=== PATIENT | female | born 1985 | race Caucasian/White ===

== ENCOUNTER 2020-08-26 14:14 | Outpatient (REF) | payer MEDICAID, SELFPAY ==
[2020-08-27 22:27] LABS: Gliadin Deamidated IgA Ab 3 Units; Gliadin Deamidated IgG Ab 1 Units
[2020-08-30 14:36] LABS: Transglutaminase Ab IgG 5 U/mL
== END 2020-08-26 14:15 | disposition home or self-care (01) ==
LOC: HO.LAB 14:14
PROVIDERS: PCP Internal Medicine; Visit Provider Internal Medicine
DX: D64.9 Anemia, unspecified (principal); R10.9 Unspecified abdominal pain
CPT/HCPCS: 36415; 83516

== ENCOUNTER 2020-09-08 12:40 | Day surgery (SDC) | payer MEDICAID, SELFPAY ==
--- NOTE | 2020-09-07 13:17 | P.CONAN_ITS ---
Documented by User: Amy Ruiz 09/07/20 13:19 HPI - Anesthesia Eval Consult details Narrative: 35yo for EGD and Colonoscopy: GERD, change in bowel habits FOR[facility]LY [facility] Past Medical History Medical History Arthritis Asthma Surgical History Surgical History H/O tubal ligation Hx of appendectomy Social History Social History Smoking Status: Current every day smoker Use of substances other than those prescribed or required for medical reasons: No Advance Directives: No Advance Directives Information Provided: Yes Meds Allergies Allergy/AdvReac Type Severity Reaction Status Date / Time No Known Allergies Allergy Verified 09/07/20 12:50 [No Known Allergies*] Home Medications Medication Instructions Recorded Confirmed Type Advil 09/07/20 History multivitamin 09/07/20 09/07/20 History pantoprazole 09/07/20 09/07/20 History Exam Exam Date and Time: September 07, 2020 1317 Pertinent Lab Results Pertinent Lab Results: Laboratory Tests 07/18/20 07/18/20 08:56 08:56 WBC 6.9 Hgb 12.6 Hct 38.5 Plt Count 279 Sodium 138 Potassium 4.0 Chloride 107 BUN 11 Creatinine 0.81 Assessment and Plan Assessment Anesthesia Assessment: Chart Reviewed Documented by User: Darryl Tucker 09/08/20 13:12 [facility] Past Medical History Medical History Arthritis Asthma Surgical History Surgical History H/O tubal ligation Hx of appendectomy Social History Social History Smoking Status: Current every day smoker Use of substances other than those prescribed or required for medical reasons: No Advance Directives: No Advance Directives Information Provided: Yes Meds Allergies Allergy/AdvReac Type Severity Reaction Status Date / Time No Known Allergies Allergy Verified 09/07/20 12:50 [No Known Allergies*] Home Medications Medication Instructions Recorded Confirmed Type Advil 09/07/20 History multivitamin 09/07/20 09/07/20 History pantoprazole 09/07/20 09/07/20 History Exam Airway Mallampati Class: II TM Dist: >3cm Neck ROM: Full Loose/Missing/Broken Teeth: Yes and Upper Heart: RRR Assessment and Plan Assessment Anesthesia Assessment: Anesthesia Plan Discussed Final Anesthetic Review NPO: Yes ASA Class: I Final Preanesthetic Review: Consent Obtained/Reviewed Anesthetic Plan Anesthetic Plan: MAC:
--- NOTE | 2020-09-08 07:36 | MHC.SHP ---
Pre-Procedural Eval Section A The patient is an INPATIENT: No Changes since office visit: No Cold of Flu in the past 2 weeks, No New Medical Problems, No Changes in Medication and No Patient answered all questions The History & Physical has been completed within 30 days and I have reviewed it.: Yes Section B Chief Complaint: reflux,boeel change Allergies: Allergies Allergy/AdvReac Type Severity Reaction Status Date / Time No Known Allergies Allergy Verified 09/07/20 12:50 [No Known Allergies*] Plan Patient has been examined and remains a candidate for the planned procedure
[2020-09-08 13:00] VITALS: BMI 23.3
[2020-09-08 13:15] VITALS: BP 91/51; PULSE 66; RESP 18; TEMP 36.2; O2SAT 97
[2020-09-08] MEDS: Lactated Ringers 1,000 ML 100 ML IVCONT (13:25)
[2020-09-08 14:30] VITALS: BP 84/46; PULSE 62; RESP 16; O2SAT 100
--- NOTE | 2020-09-08 14:37 | PM.OP ---
Brief Operative Note Date of procedure: 09/08/20 Pre-op diagnosis: gerd, change in bowels Post-op diagnosis: same (normal colonoscopy) Procedure: egd/colon Surgeon: Oumar Kowalski Anesthesia: MAC Estimated blood loss (mL): 5 Pathology: other (duodenal,antral, egj, ti, sigmoid biopsies) Condition: stable Disposition: PACU
[2020-09-08 14:44] VITALS: BP 92/62; PULSE 77; RESP 16; TEMP 36.2; O2SAT 100
[2020-09-08 14:49] VITALS: BP 107/70; PULSE 78; RESP 16; O2SAT 100
--- NOTE | 2020-09-08 15:13 | HO.POSTANES ---
Post Anesthesia Evaluation Post Anesthesia Evaluation Vital Signs: Vital Signs Temp Pulse Resp BP Pulse Ox 09/08/20 14:49 97.1 F 78 16 107/70 100 09/08/20 14:44 97.1 F 77 16 92/62 100 09/08/20 14:30 62 16 84/46 L 100 09/08/20 13:15 97.1 F 66 18 91/51 L 97 Anesthesia: Monitored Mental Status: Awake Pain Control: Satisfactory Nausea/Vomiting: None Hydration: Adequate Anesthesia-Related Issues: No Anes. Related Issues
--- NOTE | 2020-09-08 17:19 | OP_ITS ---
SURGEON: Oumar Kowalski MD INDICATIONS: 1. Gastroesophageal reflux disease. 2. Change in bowel habits. PREOPERATIVE DIAGNOSIS: POSTOPERATIVE DIAGNOSIS: PROCEDURE PERFORMED: 1. Upper endoscopy with biopsy. 2. Colonoscopy to the terminal ileum with biopsy. ESTIMATED BLOOD LOSS: COMPLICATIONS: ANESTHESIA: Monitored anesthesia care. ASSISTANTS: SPECIMENS: DESCRIPTION OF PROCEDURE: History and physical performed. The risks and benefits of the procedure were explained to the patient. Informed consent was obtained. The patient was placed in the left lateral decubitus position. The Olympus video gastroscope was introduced into the esophagus, stomach, and duodenum. Examination was performed and the scope was removed. She was repositioned for colonoscopy. A digital rectal exam was performed and was found to be normal. The Olympus pediatric video colonoscope was introduced into the rectum and advanced to the cecum without difficulty. The cecum was identified by transillumination, palpation, and identification of ileocecal valve. Examination was performed and the scope was removed. She tolerated both procedures well and was taken to recovery area in stable condition. FINDINGS: UPPER ENDOSCOPY: Esophagus: The esophagus was normal. There was no esophagitis. Biopsies were obtained from the EG junction. Stomach: The stomach was normal. Biopsies were obtained from the antrum. Duodenum: The bulb and second portion were normal. COLONOSCOPY: The terminal ileum was normal. This was biopsied. The visualized colonic mucosa was normal. The quality of the prep was good. Biopsies were also obtained from the sigmoid colon and the ileum. Retroflexed examination showed internal hemorrhoids. IMPRESSION: 1. Gastroesophageal reflux disease without esophagitis. 2. Normal colonoscopy. RECOMMENDATION: Follow up biopsy results. MD ANABEL Hernnádez/BORIS / [id number]
== END 2020-09-08 15:13 | disposition home or self-care (01) ==
PROVIDERS: PCP Internal Medicine; Visit Provider Internal Medicine Gastroenterology
PROC: (CPT 45380; principal; 2020-09-08 13:50)
DX: R19.4 Change in bowel habit (principal); K64.8 Other hemorrhoids; K21.9 Gastro-esophageal reflux disease without esophagitis; J45.909 Unspecified asthma, uncomplicated; Z79.899 Other long term (current) drug therapy; Z79.1 Long term (current) use of non-steroidal anti-inflammatories (NSAID); F17.210 Nicotine dependence, cigarettes, uncomplicated
CPT/HCPCS: 45380; 43239; 88305; 88342

== ENCOUNTER 2020-12-27 11:34 | Emergency (ER) | payer MEDICAID, SELFPAY ==
--- NOTE | ~2020-12-27 | XR_ITS ---
EXAMINATION: XR SHOULDER, RIGHT CLINICAL INFORMATION: Status post left and fell. Anterior right shoulder pain. COMPARISON: None TECHNIQUE: AP external rotation, Grashey, scapular Y, and axillary views of the right shoulder. FINDINGS: The bones and soft tissues are normal. No fracture. Glenohumeral and acromioclavicular alignment is anatomic with normal joint space. No abnormal soft tissue calcifications. XR/XR shoulder RT min 2V IMPRESSION: Unremarkable right shoulder exam.
[2020-12-27 13:02] VITALS: BP 103/55; PULSE 65; RESP 18; TEMP 36.4; O2SAT 98; BMI 22.6
--- NOTE | 2020-12-27 13:05 | ED.FALL ---
HPI - Fall General Chief Complaint: Fall <ARCHIE Caicedo Last Filed: 12/27/20 13:09> Stated Complaint: SHOULDER PAIN - no known injury <ARCHIE Caicedo Last Filed: 12/27/20 13:09> Time Seen by Provider: 12/27/20 13:02 <ARCHIE Caicedo - Last Filed: 12/27/20 13:09> Source: patient <ARCHIE Ibrahim Last Filed: 12/27/20 14:59> Mode of arrival: ambulatory <ARCHIE Ibrahim - Last Filed: 12/27/20 14:59> History of Present Illness HPI Narrative: 35-year-old female with no significant past medical history presenting to the ED complaining of right shoulder pain s/p slip and fall on black ice while shoveling yesterday. Reports fell backwards/on right side, reports hitting head, denies LOC or headache. Denies taking anticoagulation. Reports decreased range of motion to shoulder secondary to pain. Denies numbness, tingling, weakness, or injury to other area <ARCHIE Ibrahim - Last Filed: 12/27/20 14:59> MD complaint: fall <ARCHIE Ibrahim Last Filed: 12/27/20 14:59> Onset (ago): day(s) <ARCHIE Ibrahim - Last Filed: 12/27/20 14:59> Related Data Home Medications: Home Medications Medication Instructions Recorded Confirmed Advil 200 mg PO DAILY PRN 09/07/20 09/13/20 multivitamin 1 tab PO DAILY 09/07/20 09/13/20 pantoprazole 40 mg PO DAILY 09/07/20 09/13/20 Previous Rx's Medication Instructions Recorded acetaminophen [Tylenol Extra 500 mg PO Q6H PRN #20 tab 12/27/20 Strength] cyclobenzaprine 5 mg PO Q8H PRN 5 Days #14 tab 12/27/20 lidocaine [Lidoderm] 1 patch TOPICAL DAILY PRN #30 ea 12/27/20 MDD remove after 12 hours naproxen 500 mg PO BID PRN 10 Days #20 tab 12/27/20 <ARCHIE Caicedo Last Filed: 12/27/20 13:09> Allergies/Adverse Reactions: Allergies Allergy/AdvReac Type Severity Reaction Status Date / Time No Known Allergies Allergy Verified 12/27/20 13:02 [No Known Allergies*] <ARCHIE Caicedo - Last Filed: 12/27/20 13:09> Review of Systems Review of Systems: Constitutional: No Fever, No Chills ENT/Mouth: No Sinus Pain, No Hoarseness, No sore throat Gastrointestinal: No Nausea, No Vomiting Genitourinary: No Urinary Incontinence/retention Musculoskeletal: +joint pain, No Myalgias, No Joint Swelling Skin: No Skin Lesions, No rash Neuro: No Weakness, No Numbness, No Paresthesias, no headache, no LOC <ARCHIE Ibrahim - Last Filed: 12/27/20 14:59> Yes all other systems are reviewed and are negative <ARCHIE Ibrahim - Last Filed: 12/27/20 14:59> ON LICENSE OF [facility] Past Medical History Attestation statement: The following information was validated with the patient. <ARCHIE Ibrahim - Last Filed: 12/27/20 14:59> Medical History: Medical History (Updated 12/27/20 @ 14:53 by ARCHIE Ibrahim) Arthritis Asthma <ARCHIE Caicedo - Last Filed: 12/27/20 13:09> Surgical History: Surgical History H/O hemorrhoidectomy H/O tubal ligation Hx of appendectomy <ARCHIE Caicedo - Last Filed: 12/27/20 13:09> Social History Social History: Social History (Updated 09/13/20 @ 13:47 by Dalila Graham RN) Alcohol intake: never Smoking Status: Current every day smoker Advance Directives: No Advance Directives Information Provided: No <ARCHIE Caicedo - Last Filed: 12/27/20 13:09> Physical Exam Vital Signs: Vital Signs: Last Vital Signs Temp 97.6 F 12/27/20 13:02 Pulse 65 12/27/20 13:02 Resp 18 12/27/20 13:02 BP 103/55 L 12/27/20 13:02 Pulse Ox 98 12/27/20 13:02 Body Mass Index 22.6 <ARCHIE Caicedo - Last Filed: 12/27/20 13:09> Vital Signs: Last Vital Signs Temp 97.6 F 12/27/20 13:02 Pulse 65 12/27/20 13:02 Resp 18 12/27/20 13:02 BP 103/55 L 12/27/20 13:02 Pulse Ox 98 12/27/20 13:02 Body Mass Index 22.6 <Regi Luu DC - Last Filed: 12/27/20 14:59> Const: General: cooperative, healthy appearing, comfortable and no acute distress <Regi Luu DC - Last Filed: 12/27/20 14:59> Orientation/consciousness: patient oriented x3 <Regi Luu DC - Last Filed: 12/27/20 14:59> Limitations: no limitations <Regi Luu DC - Last Filed: 12/27/20 14:59> HENMT: Head: Yes normal to inspection <eRgi Luu DC - Last Filed: 12/27/20 14:59> Ears: hearing grossly normal bilaterally <Regi Luu DC - Last Filed: 12/27/20 14:59> General nose exam: Normal external nose present <Regi Luu DC - Last Filed: 12/27/20 14:59> Face and sinus: Yes normal facial exam <Regi Luu DC - Last Filed: 12/27/20 14:59> Eyes: General: appearance normal, both eyes and all related structures <Reig Luu DC - Last Filed: 12/27/20 14:59> Pupils: Equal, round and reactive pupils present <Regi Luu DC - Last Filed: 12/27/20 14:59> EOM: EOMs intact bilaterally <Regi Luu DC - Last Filed: 12/27/20 14:59> Neck: Other: No midline cervical spinous tenderness. + right-sided trapezius muscle tenderness to palpation <Regi Luu DC - Last Filed: 12/27/20 14:59> Neck: Yes normal visual inspection and Yes no meningeal signs <ARCHIE Ibrahim - Last Filed: 12/27/20 14:59> Resp: Effort & Inspection: normal respiratory effort <ARCHIE Ibrahim - Last Filed: 12/27/20 14:59> Cardio: Rate: regular rate <ARCHIE Ibraihm - Last Filed: 12/27/20 14:59> GI: Inspection: Yes normal to inspection <ARCHIE Ibrahim - Last Filed: 12/27/20 14:59> Skin: Rashes: no rashes <ARCHIE Ibrahim - Last Filed: 12/27/20 14:59> Wounds: no wounds <ARCHIE Ibrahim - Last Filed: 12/27/20 14:59> Neuro: General: patient oriented x3, gait normal, tone normal and no meningeal signs <ARCHIE Ibrahim - Last Filed: 12/27/20 14:59> Cranial nerves: Yes Equal, round and reactive pupils present <ARCHIE Ibrahim - Last Filed: 12/27/20 14:59> Gait exam (Neuro): Normal gait present <ARCHIE Ibrahim - Last Filed: 12/27/20 14:59> Extrem: Other: Right shoulder normal to inspection, no appreciable deformity. Tender to palpation with decreased abduction and external rotation. Neurovascularly intact. <ARCHIE Ibrahim - Last Filed: 12/27/20 14:59> Course Course Course Narrative: RME performed at this time - 35yoF presenting after she slipped and fell yesterday on ice/snow injurying her r shoulder. Hit her head but no LOC. - Xray of R shoulder ordered at this time. Pt back to waiting room. <ARCHIE Caicedo - Last Filed: 12/27/20 13:09> -shoulder x-ray unremarkable <ARCHIE Ibrahim - Last Filed: 12/27/20 14:59> MDM - Fall MDM Narrative Medical decision making narrative: On exam VSS, NAD, physical exam as above. X-rays unremarkable. Likely ligamental/tendon injury. Discussed with patient symptomatic remedies and follow up with PCP, may need MRI in the future for further eval <ARCHIE Ibrahim - Last Filed: 12/27/20 14:59> Medical Records Attestation: I reviewed the patient's medical records. <ARCHIE Ibrahim - Last Filed: 12/27/20 14:59> Discharge Plan Discharge Clinical Impression: Acute shoulder pain Qualifiers: Laterality: right Qualified Code(s): M25.511 - Pain in right shoulder <ARCHIE Caicedo - Last Filed: 12/27/20 13:09> Patient Disposition: Home, Self-Care <ARCHIE Caicedo - Last Filed: 12/27/20 13:09> Instructions: Musculoskeletal Pain (ED) <ARCHIE Caicedo - Last Filed: 12/27/20 13:09> Additional Instructions: Your x-ray was unremarkable. Your pain is likely musculoskeletal Flexeril is a muscle relaxer, take at night as it makes you drowsy, do not drive, drink alcohol, or operate machinery while taking it Naproxen as an anti-inflammatory / pain medication, take with food Lidoderm patches are numbing patches, apply to painful area In addition take Tylenol at home If symptoms persist or worsen, pain becomes unbearable, you developed urinary retention or incontinence, or weakness return to the ED <ARCHIE Caicedo - Last Filed: 12/27/20 13:09> Prescriptions: New acetaminophen [Tylenol Extra Strength] 500 mg tablet 500 mg PO Q6H PRN (Reason: pain or fever) Qty: 20 RF: 0 lidocaine [Lidoderm] 5 % adhesive patch,medicated 1 patch topical DAILY MDD remove after 12 hours PRN (Reason: pain) Qty: 30 RF: 0 naproxen 500 mg tablet 500 mg PO BID PRN (Reason: pain) 10 Days Qty: 20 RF: 0 cyclobenzaprine 5 mg tablet 5 mg PO Q8H PRN (Reason: pain (scale score 7-10)) 5 Days Qty: 14 RF: 0 No Action Advil 200 mg PO DAILY PRN (Reason: Pain) RF: 0 Hold Instructions: 7 days multivitamin 1 tab PO DAILY RF: 0 pantoprazole 40 mg PO DAILY RF: 0 <ARCHIE Caicedo - Last Filed: 12/27/20 13:09> Referrals: Dheeraj Morton MD [Primary Care Provider] - 3 days Gene Poon MD [Physician] - 1 week (as needed) <ARCHIE Caicedo Last Filed: 12/27/20 13:09> Stand Alone Forms: Work/School Release <ARCHIE Caicedo Last Filed: 12/27/20 13:09>
== END 2020-12-27 15:14 | disposition home or self-care (01) ==
PROVIDERS: Emergency Provider Emergency Medicine; PCP Internal Medicine
DX: G89.11 Acute pain due to trauma (principal); M25.511 Pain in right shoulder
CPT/HCPCS: 73030; 99283

== ENCOUNTER 2021-05-26 21:11 | Emergency (ER) | payer MEDICAID, SELFPAY ==
--- NOTE | ~2021-05-26 | XR_ITS ---
EXAMINATION: XR CHEST CLINICAL INFORMATION: Cough, fever COMPARISON: 06/10/2018 TECHNIQUE: Frontal view of the chest was obtained. FINDINGS: No significant abnormality is noted involving the heart, lungs, mediastinum, bony thorax or soft tissues. XR/XR chest 1V IMPRESSION: Unremarkable examination.
[2021-05-26 21:28] VITALS: BP 112/65; PULSE 113; RESP 22; TEMP 38.2; BMI 26.6
[2021-05-26 22:00] VITALS: BP 106/67; PULSE 101; RESP 16; TEMP 38.3; O2SAT 100
[2021-05-26 22:17] LABS: COVID-19 Test Negative (Negative)
--- NOTE | 2021-05-26 22:39 | ED.URI ---
HPI - URI/Sore Throat General Chief Complaint: Upper Respiratory Symptoms Stated Complaint: multiple complaints Time Seen by Provider: 05/26/21 22:05 Source: patient Mode of arrival: ambulatory History of Present Illness HPI Narrative: 36-year-old female with past medical history of asthma, arthritis, presenting to the ED complaining of headache, subjective fever, sore throat, rhinorrhea, left ear pain, body aches / myalgias, dry cough, SOB, and chest wall pain x today. Denies recent travel, LE edema, history of blood clots, abdominal pain, nausea /vomiting, sick contacts MD elicited complaint: fever, cough, sore throat, rhinorrhea and nasal congestion Related Data Home Medications Medication Instructions Recorded Confirmed Advil 200 mg PO DAILY PRN 09/07/20 09/13/20 multivitamin 1 tab PO DAILY 09/07/20 09/13/20 pantoprazole 40 mg PO DAILY 09/07/20 09/13/20 Previous Rx's Medication Instructions Recorded acetaminophen [Tylenol Extra 500 mg PO Q6H PRN #20 tab 12/27/20 Strength] cyclobenzaprine 5 mg PO Q8H PRN 5 Days #14 tab 12/27/20 lidocaine [Lidoderm] 1 patch TOPICAL DAILY PRN #30 ea 12/27/20 MDD remove after 12 hours naproxen 500 mg PO BID PRN 10 Days #20 tab 12/27/20 acetaminophen [Tylenol Extra 500 mg PO Q6H PRN #20 tab 05/27/21 Strength] albuterol sulfate 2 puff INHALATION Q4-6H PRN #6.7 g 05/27/21 benzonatate [Tessalon Perles] 100 mg PO TID PRN #14 cap 05/27/21 fluticasone propionate [Flonase 2 spray INTRANASAL DAILY #16 g 05/27/21 Allergy Relief] Allergies Allergy/AdvReac Type Severity Reaction Status Date / Time No Known Allergies Allergy Verified 05/26/21 21:28 [No Known Allergies*] Review of Systems Review of Systems: Constitutional: + Fever, No Chills, No Fatigue, No Malaise ENT/Mouth: +Ear Pain, + Nasal Congestion, No Sinus Pain, No Hoarseness, + sore throat, + Rhinorrhea, No Swallowing Difficulty Eyes: No Swelling, No Redness, No Foreign Body, No Discharge Cardiovascular: + Chest Pain, + SOB, No Edema Respiratory: + Cough, No Sputum, No Wheezing Gastrointestinal: No Nausea, No Vomiting, No Diarrhea, No Abdominal pain Genitourinary: No Dysuria, No Hematuria, No Hesitancy Musculoskeletal: No joint pain, No Myalgias, No Joint Swelling Skin: No Skin Lesions, No rash Neuro: No Weakness, No Numbness, + Headache Yes all other systems are reviewed and are negative [facility] Past Medical History Attestation statement: The following information was validated with the patient. Medical History (Updated 05/27/21 @ 00:16 by ARCHIE Ibrahim) Arthritis Asthma Surgical History H/O hemorrhoidectomy H/O tubal ligation Hx of appendectomy Social History Social History (Updated 09/13/20 @ 13:47 by Dalila Graham RN) Alcohol intake: never Advance Directives: No Advance Directives Information Provided: No Physical Exam Vital Signs: Vital Signs: Last Vital Signs Temp 99.5 F 05/26/21 23:23 Pulse 97 05/26/21 23:23 Resp 16 05/26/21 23:23 BP 125/70 05/26/21 23:23 Pulse Ox 99 05/26/21 23:23 Body Mass Index 26.6 Const: General: cooperative, healthy appearing and no acute distress Orientation/consciousness: patient oriented x3 Limitations: no limitations HENMT: Head: Yes normal to inspection Ears: hearing grossly normal bilaterally, normal mastoids bilaterally and TM abnormal wth effusion (left) and erythematous on the left General nose exam: Normal external nose present Face and sinus: Yes normal facial exam Mouth: Normal oral and palatal mucosa present Throat: Yes posterior oropharynx normal, Yes tonsils normal, Yes uvula midline, No peritonsillar mass and No uvular edema Eyes: General: appearance normal, both eyes and all related structures EOM: EOMs intact bilaterally Neck: Neck: Yes normal visual inspection, Yes no meningeal signs and Yes supple Resp: Effort & Inspection: normal respiratory effort Auscultation: clear to auscultation bilaterally, no rales, no rhonchi and no wheezes Cardio: Rate: regular rate Heart sounds: S1 normal heart sound present and S2 normal heart sound present GI: Inspection: Yes normal to inspection Palpation (GI): Soft to palpation, nontender, no guarding and not rigid Skin: Rashes: no rashes Wounds: no wounds Neuro: General: patient oriented x3 and no meningeal signs Gait exam (Neuro): Normal gait present Extrem: General: Yes normal to inspection, Yes no pedal edema and Yes no calf tenderness Course Course Course Narrative: XR chest 1V IMPRESSION: Unremarkable examination. - labs unremarkable, no leukocytosis, troponin negative, COVID-19 negative, rapid strep negative -0013-- patient's vital signs improved with antipyretics. Results discussed including worrisome signs and symptoms and strict return precautions. Patient is to follow-up with PCP MDM - URI/Sore Throat MDM Narrative Medical decision making narrative: 36-year-old female with past medical history of asthma, arthritis, presenting to the ED complaining of headache, subjective fever, sore throat, rhinorrhea, left ear pain, body aches / myalgias, dry cough, SOB, and chest wall pain x today. On exam febrile, tachycardic and tachypneic likely from fever, nontoxic, lungs CTA, +L otitis media, no pedal edema or calf ttp. Exam consistent with otitis media. Concern for viral syndrome/ COVID-19 vs PNA. Low concern for PE/ACS, no evidence of strep pharyngitis Plan: EKG, labs, CXR, COVID-19 testing, rapid strep, IVF Medical Records Attestation: I reviewed the patient's medical records. Lab Data Attestation: I reviewed the patient's lab results. Result diagrams: 05/26/21 22:42 05/26/21 22:42 Labs: Lab Results 05/26/21 05/26/21 05/26/21 Range/Units 21:35 22:42 22:42 WBC 10.2 (4.8-10.8) X10*3/uL RBC 4.04 L (4.20-5.50) X10*6/uL Hgb 12.2 (12.0-16.0) g/dl Hct 36.7 L (37-47) % MCV 90.8 (80-98) fL MCH 30.2 (27.0-33.0) pg MCHC 33.2 (31.0-35.0) g/dl RDW 12.9 (11.0-16.0) % Plt Count 247 (160-400) X10*3/uL MPV 9.2 L (9.4-12.3) fL Immature Gran % (Auto) 0.2 (0.0-0.4) % Neut % (Auto) 84.9 H (45-73) % Lymph % (Auto) 7.8 L (20-40) % [place] % (Auto) 5.7 (2-11) % Eos % (Auto) 1.1 (0-4) % Baso % (Auto) 0.3 (0-2) % Lymph # (Auto) 0.8 L (1.2-4.9) X10*3/uL [place] # (Auto) 0.6 (0.1-1.2) X10*3/uL Eos # (Auto) 0.1 (0.0-0.4) X10*3/uL Baso # (Auto) 0.0 (0.0-0.2) X10*3/uL Abs Immat Gran (auto) 0.02 (0.00-0.03) X10*3/uL Absolute Neuts (auto) 8.7 H (2.0-8.3) X10*3/uL Absolute Nucleated RBC 0.000 (0.0-0.012) X10*3/uL Nucleated RBC % (auto) 0.0 (0.0-0.2) /100WBC Sodium 135 (135-145) mmol/L Potassium 3.9 (3.3-5.1) mmol/L Chloride 104 (96-108) mmol/L Carbon Dioxide 23 (22-29) mmol/L Anion Gap 12 (12-20) BUN 11 (9-16) mg/dL Creatinine 0.96 (0.5-1.4) mg/dL Estim Creat Clear Calc 80.8 Estimated GFR > 60 Random Glucose 101 (60-115) mg/dL Calcium 9.2 (8.4-10.2) mg/dL Troponin I High Sens (<3.5-17.0) ng/L COVID-19 (KRISTIE) Negative (Negative) COVID-19 Clin Com See Note S. pyogenes GrpA KYLE (Negative) 05/26/21 05/26/21 Range/Units 22:42 22:56 WBC (4.8-10.8) X10*3/uL RBC (4.20-5.50) X10*6/uL Hgb (12.0-16.0) g/dl Hct (37-47) % MCV (80-98) fL MCH (27.0-33.0) pg MCHC (31.0-35.0) g/dl RDW (11.0-16.0) % Plt Count (160-400) X10*3/uL MPV (9.4-12.3) fL Immature Gran % (Auto) (0.0-0.4) % Neut % (Auto) (45-73) % Lymph % (Auto) (20-40) % [place] % (Auto) (2-11) % Eos % (Auto) (0-4) % Baso % (Auto) (0-2) % Lymph # (Auto) (1.2-4.9) X10*3/uL [place] # (Auto) (0.1-1.2) X10*3/uL Eos # (Auto) (0.0-0.4) X10*3/uL Baso # (Auto) (0.0-0.2) X10*3/uL Abs Immat Gran (auto) (0.00-0.03) X10*3/uL Absolute Neuts (auto) (2.0-8.3) X10*3/uL Absolute Nucleated RBC (0.0-0.012) X10*3/uL Nucleated RBC % (auto) (0.0-0.2) /100WBC Sodium (135-145) mmol/L Potassium (3.3-5.1) mmol/L Chloride (96-108) mmol/L Carbon Dioxide (22-29) mmol/L Anion Gap (12-20) BUN (9-16) mg/dL Creatinine (0.5-1.4) mg/dL Estim Creat Clear Calc Estimated GFR Random Glucose (60-115) mg/dL Calcium (8.4-10.2) mg/dL Troponin I High Sens < 3.5 (<3.5-17.0) ng/L COVID-19 (KRISTIE) (Negative) COVID-19 Clin Com S. pyogenes GrpA YKLE Negative (Negative) Discharge Plan Discharge Clinical Impression: Viral infection Patient Disposition: Home, Self-Care Instructions: Viral Syndrome (ED) Additional Instructions: your blood work was reassuring, he tested negative for COVID-19 and strep throat Your x-ray was also unremarkable It is important for you to stay hydrated at home, take Tylenol Motrin In addition test on 1st are for cough, Flonase is a nasal decongestion take as needed Albuterol inhaler will help with shortness of breath/wheezing If your symptoms persist or worsen, become unbearable, or chest pain or shortness of breath becomes more constant, or fevers unresolved with Tylenol/ Motrin at home return to the ED please follow-up with her doctor Prescriptions: New albuterol sulfate 90 mcg/actuation HFA aerosol inhaler 2 puff inhalation Q4-6H PRN (Reason: shortness of breath or wheezing) Qty: 6.7 RF: 0 acetaminophen [Tylenol Extra Strength] 500 mg tablet 500 mg PO Q6H PRN (Reason: pain or fever) Qty: 20 RF: 0 benzonatate [Tessalon Perles] 100 mg capsule 100 mg PO TID PRN (Reason: cough) Qty: 14 RF: 0 fluticasone propionate [Flonase Allergy Relief] 50 mcg/actuation spray,suspension 2 spray intranasal DAILY Qty: 16 RF: 0 No Action Advil 200 mg PO DAILY PRN (Reason: Pain) RF: 0 Hold Instructions: 7 days multivitamin 1 tab PO DAILY RF: 0 pantoprazole 40 mg PO DAILY RF: 0 acetaminophen [Tylenol Extra Strength] 500 mg tablet 500 mg PO Q6H PRN (Reason: pain or fever) Qty: 20 RF: 0 lidocaine [Lidoderm] 5 % adhesive patch,medicated 1 patch topical DAILY MDD remove after 12 hours PRN (Reason: pain) Qty: 30 RF: 0 naproxen 500 mg tablet 500 mg PO BID PRN (Reason: pain) 10 Days Qty: 20 RF: 0 cyclobenzaprine 5 mg tablet 5 mg PO Q8H PRN (Reason: pain (scale score 7-10)) 5 Days Qty: 14 RF: 0 Referrals: Dheeraj Morton MD [Primary Care Provider] - 2 days
[2021-05-26] MEDS: Ibuprofen 600 MG TABLET PO (22:43)
[2021-05-26] MEDS: 0.9 % Sodium Chloride 1,000 ML 999 ML IVCONT (22:43)
--- NOTE | 2021-05-26 22:45 | ECG_ITS ---
Test Reason : SOB Blood Pressure : / mmHG Vent. Rate : 082 BPM Atrial Rate : 082 BPM P-R Int : 158 ms QRS Dur : 084 ms QT Int : 368 ms P-R-T Axes : 033 049 019 degrees QTc Int : 429 ms Normal sinus rhythm Normal ECG No previous ECGs available Referred By: Regi Luu Electronically Signed By:AUBREE MOLINA
[2021-05-26 22:49] LABS: MANUAL DIFF FLAG NO
[2021-05-26 22:51] LABS: Basophils Percent Auto 0.3 % (0-2); Eosinophils Absolute Auto 0.1 X10*3/uL (0.0-0.4); Eosinophils Percent Auto 1.1 % (0-4); Hematocrit 36.7 % (37-47); Hemoglobin 12.2 g/dl (12.0-16.0); Imm Gran Abs Auto 0.02 X10*3/uL (0.00-0.03); Imm Gran Pct Auto 0.2 % (0.0-0.4); Lymphocytes Absolute Auto 0.8 X10*3/uL (1.2-4.9); Lymphocytes Percent Auto 7.8 % (20-40); Mean Corpuscular HGB Conc 33.2 g/dl (31.0-35.0); Mean Corpuscular Hemoglobin 30.2 pg (27.0-33.0); Mean Corpuscular Volume 90.8 fL (80-98); Mean Platelet Volume 9.2 fL (9.4-12.3); Monocytes Absolute Auto 0.6 X10*3/uL (0.1-1.2); Monocytes Percent Auto 5.7 % (2-11); Neutrophils Absolute Auto 8.7 X10*3/uL (2.0-8.3); Neutrophils Percent Auto 84.9 % (45-73); Platelet Count 247 X10*3/uL (160-400); Red Blood Count 4.04 X10*6/uL (4.20-5.50); Red Cell Distribution Width 12.9 % (11.0-16.0); White Blood Count 10.2 X10*3/uL (4.8-10.8)
[2021-05-26 23:16] LABS: Anion Gap 12 (12-20); Blood Urea Nitrogen 11 mg/dL (9-16); Calcium 9.2 mg/dL (8.4-10.2); Carbon Dioxide 23 mmol/L (22-29); Chloride 104 mmol/L (96-108); Creatinine Clr Calc Pharmacy 80.8; Estimated Glomerular Filt Rate > 60; Glucose Random 101 mg/dL (60-115); Potassium 3.9 mmol/L (3.3-5.1); Sodium 135 mmol/L (135-145)
[2021-05-26 23:21] LABS: Strep A Nucleic Acid Negative (Negative)
[2021-05-26 23:23] VITALS: BP 125/70; PULSE 97; RESP 16; TEMP 37.5; O2SAT 99
[2021-05-26 23:25] LABS: Troponin-I High Sensitivity < 3.5 ng/L (<3.5-17.0)
== END 2021-05-27 00:33 | disposition home or self-care (01) ==
PROVIDERS: Physician Assistant; Emergency Provider Emergency Medicine; PCP Internal Medicine
DX: B34.9 Viral infection, unspecified (principal); J45.909 Unspecified asthma, uncomplicated; Z20.822 Contact with and (suspected) exposure to COVID-19
CPT/HCPCS: 36415; 71045; 80048; 84484; 85025; 87635; 87651; 93005; 96360; 99285

== ENCOUNTER 2021-08-05 11:56 | Outpatient (REF) | payer MEDICAID, SELFPAY ==
[2021-08-05 13:45] LABS: MANUAL DIFF FLAG NO
[2021-08-05 13:54] LABS: Basophils Percent Auto 0.4 % (0-2); Eosinophils Percent Auto 0.5 % (0-4); Hematocrit 36.6 % (37-47); Hemoglobin 12.3 g/dl (12.0-16.0); Imm Gran Abs Auto 0.02 X10*3/uL (0.00-0.03); Imm Gran Pct Auto 0.3 % (0.0-0.4); Lymphocytes Absolute Auto 1.8 X10*3/uL (1.2-4.9); Lymphocytes Percent Auto 23.6 % (20-40); Mean Corpuscular HGB Conc 33.6 g/dl (31.0-35.0); Mean Corpuscular Hemoglobin 31.1 pg (27.0-33.0); Mean Corpuscular Volume 92.7 fL (80-98); Mean Platelet Volume 10.1 fL (9.4-12.3); Monocytes Absolute Auto 0.4 X10*3/uL (0.1-1.2); Monocytes Percent Auto 5.1 % (2-11); Neutrophils Absolute Auto 5.2 X10*3/uL (2.0-8.3); Neutrophils Percent Auto 70.1 % (45-73); Platelet Count 246 X10*3/uL (160-400); Red Blood Count 3.95 X10*6/uL (4.20-5.50); Red Cell Distribution Width 13.2 % (11.0-16.0); White Blood Count 7.4 X10*3/uL (4.8-10.8)
[2021-08-05 15:00] LABS: Vitamin B12 185 pg/mL (200-900)
[2021-08-05 15:18] LABS: Anion Gap 12 (12-20); Blood Urea Nitrogen 11 mg/dL (9-16); C Reactive Protein 0.06 mg/dL (< or = 0.50); Calcium 9.4 mg/dL (8.4-10.2); Carbon Dioxide 25 mmol/L (22-29); Chloride 104 mmol/L (96-108); Estimated Glomerular Filt Rate > 60; Glucose Random 107 mg/dL (60-115); Sodium 137 mmol/L (135-145)
[2021-08-05 15:42] LABS: Thyroid Stimulating Hormone 0.68 uIU/mL (0.32-4.0)
== END 2021-08-05 11:57 | disposition home or self-care (01) ==
LOC: HO.10HDL 11:56
PROVIDERS: Visit Provider Internal Medicine
DX: R63.5 Abnormal weight gain (principal); K21.9 Gastro-esophageal reflux disease without esophagitis; E55.9 Vitamin D deficiency, unspecified; M79.642 Pain in left hand; M79.641 Pain in right hand
CPT/HCPCS: 36415; 80048; 82306; 82607; 84439; 84443; 85025; 86140

== ENCOUNTER 2021-08-18 12:34 | Outpatient (REF) | payer MEDICAID, SELFPAY ==
[2021-08-18 14:41] LABS: COVID-19 Test Negative (Negative)
== END 2021-08-18 12:35 | disposition home or self-care (01) ==
LOC: HO.LAB 12:34
PROVIDERS: PCP Internal Medicine; Visit Provider Internal Medicine
DX: Z20.822 Contact with and (suspected) exposure to COVID-19 (principal)
CPT/HCPCS: 36415; 87635; C9803

== ENCOUNTER 2021-09-29 07:50 | Outpatient (REF) | payer MEDICAID, SELFPAY ==
--- NOTE | 2021-09-29 07:54 | EMG_ITS ---
Bilateral median and ulnar motor and sensory studies were performed. Bilateral radial sensory studies were performed and paraspinal muscles were tested with a needle. IMPRESSION: Mild bilateral ulnar neuropathy across cubital tunnel. Median studies were within normal range. MD FIDELIA Bonilla/BORIS / [id number]
== END 2021-09-29 07:51 | disposition home or self-care (01) ==
LOC: HO.NEURO 07:50
PROVIDERS: Visit Provider Internal Medicine
DX: M79.643 Pain in unspecified hand (principal)
CPT/HCPCS: 95886; 95911

== ENCOUNTER 2021-10-20 10:57 | Outpatient (REF) | payer MEDICAID, SELFPAY ==
[2021-10-22 11:18] LABS: BV Int Neg Control Negative (Negative); BV Int Pos Control Positive (Positive)
[2021-10-22 15:00] LABS: CT PCR NOT DETECTED (Not Detect.); NG PCR NOT DETECTED (Not Detect.)
[2021-10-27 04:52] LABS: HPV mRNA E6/E7 rflx Not Detected (Not Detected)
== END 2021-10-20 10:58 | disposition home or self-care (01) ==
LOC: HO.LAB 10:57
PROVIDERS: PCP Internal Medicine; Visit Provider Advanced Practice Midwife
DX: Z01.419 Encounter for gynecological examination (general) (routine) without abnormal findings (principal); Z11.51 Encounter for screening for human papillomavirus (HPV); Z20.2 Contact with and (suspected) exposure to infections with a predominantly sexual mode of transmission; Z87.42 Personal history of other diseases of the female genital tract; Z98.890 Other specified postprocedural states
CPT/HCPCS: 87480; 87491; 87510; 87591; 87624; 87660; 88142

== ENCOUNTER 2021-11-23 13:33 | Outpatient (REF) | payer MEDICAID, SELFPAY ==
[2021-11-23 14:41] LABS: Influenza A PCR NEGATIVE (Negative); Influenza B PCR NEGATIVE (Negative); Resp Syncy Virus RNA Qual PCR NEGATIVE (Negative); SARS COV2 PCR INHOUSE POSITIVE (Negative)
== END 2021-11-23 13:34 | disposition home or self-care (01) ==
LOC: HO.LNP 13:33
PROVIDERS: Visit Provider Internal Medicine
DX: J02.9 Acute pharyngitis, unspecified (principal); U07.1 COVID-19; Z20.822 Contact with and (suspected) exposure to COVID-19
CPT/HCPCS: 0241U

== ENCOUNTER → 2022-11-28 12:40 | Outpatient (BNVA) | payer MEDICAID, SELFPAY | PROVIDERS: PCP Internal Medicine; Visit Provider Advanced Practice Midwife | DX: Z13.89 Encounter for screening for other disorder (principal) ==

== ENCOUNTER 2023-10-23 14:15 | Outpatient (REF) | payer MEDICAID, SELFPAY ==
[2023-10-23 14:35] LABS: MANUAL DIFF FLAG NO
[2023-10-23 14:46] LABS: Basophils Absolute Auto 0.1 X10*3/uL (0.0-0.2); Basophils Percent Auto 0.6 % (0-2); Eosinophils Absolute Auto 0.1 X10*3/uL (0.0-0.4); Eosinophils Percent Auto 0.6 % (0-4); Hemoglobin 13.4 g/dl (12.0-16.0); Imm Gran Abs Auto 0.01 X10*3/uL (0.00-0.03); Imm Gran Pct Auto 0.1 % (0.0-0.4); Lymphocytes Absolute Auto 2.2 X10*3/uL (1.2-4.9); Lymphocytes Percent Auto 27.9 % (20-40); Mean Corpuscular HGB Conc 33.5 g/dl (31.0-35.0); Mean Corpuscular Hemoglobin 31.2 pg (27.0-33.0); Mean Corpuscular Volume 93.2 fL (80.0-98.0); Mean Platelet Volume 8.8 fL (9.4-12.3); Monocytes Absolute Auto 0.4 X10*3/uL (0.1-1.2); Monocytes Percent Auto 4.7 % (2-11); Neutrophils Absolute Auto 5.2 x10*3/uL (2.0-8.3); Neutrophils Percent Auto 66.1 % (45-73); Platelet Count 288 X10*3/uL (160-400); Red Blood Count 4.29 X10*6/uL (4.20-5.50); Red Cell Distribution Width 12.7 % (11.0-16.0); White Blood Count 7.9 X10*3/uL (4.8-10.8)
[2023-10-23 15:21] LABS: Anion Gap 11 (12-20); Blood Urea Nitrogen 8 mg/dL (9-16); Calcium 9.3 mg/dL (8.4-10.2); Carbon Dioxide 24 mmol/L (22-29); Chloride 106 mmol/L (96-108); Estimated Glomerular Filt Rate > 60; Glucose Random 87 mg/dL (60-115); Iron 136 mcg/dL (30-160); Percent Iron Saturation 43 % (15-50); Sodium 137 mmol/L (135-145); Total Iron Binding Capacity 314 mcg/dL (228-428); Unsaturated Iron Binding 178 ug/dL
[2023-10-23 15:38] LABS: Vitamin B12 201 pg/mL (200-900); Vitamin D 25-OH Total 14.5 ng/mL (>30)
[2023-10-25 16:19] LABS: TS Negative Control Passed; TS Panel A 0; TS Panel B 0; TS Positive Control Passed; TSpotTB Negative (Negative)
== END 2023-10-23 14:16 | disposition home or self-care (01) ==
LOC: HO.LAB 14:15
PROVIDERS: PCP Internal Medicine; Visit Provider Internal Medicine
DX: Z02.0 Encounter for examination for admission to educational institution (principal); Z11.1 Encounter for screening for respiratory tuberculosis; D64.9 Anemia, unspecified; E55.9 Vitamin D deficiency, unspecified; E53.8 Deficiency of other specified B group vitamins
CPT/HCPCS: 36415; 80048; 82306; 82607; 83540; 85025; 86481

== ENCOUNTER 2024-04-30 10:01 | Outpatient (REF) | payer MEDICAID, SELFPAY ==
[2024-04-30 10:38] LABS: MANUAL DIFF FLAG NO
[2024-04-30 10:56] LABS: Basophils Percent Auto 0.4 % (0-2); Eosinophils Absolute Auto 0.1 X10*3/uL (0.0-0.4); Eosinophils Percent Auto 0.8 % (0-4); Hematocrit 40.2 % (37.0-47.0); Hemoglobin 13.8 g/dl (12.0-16.0); Imm Gran Abs Auto 0.03 X10*3/uL (0.00-0.03); Imm Gran Pct Auto 0.3 % (0.0-0.4); Lymphocytes Absolute Auto 2.3 X10*3/uL (1.2-4.9); Lymphocytes Percent Auto 25.2 % (20-40); Mean Corpuscular HGB Conc 34.3 g/dl (31.0-35.0); Mean Corpuscular Hemoglobin 32.3 pg (27.0-33.0); Mean Corpuscular Volume 94.1 fL (80.0-98.0); Mean Platelet Volume 9.1 fL (9.4-12.3); Monocytes Absolute Auto 0.5 X10*3/uL (0.1-1.2); Monocytes Percent Auto 5.4 % (2-11); Neutrophils Absolute Auto 6.1 x10*3/uL (2.0-8.3); Neutrophils Percent Auto 67.9 % (45-73); Platelet Count 311 X10*3/uL (160-400); Red Blood Count 4.27 X10*6/uL (4.20-5.50)
[2024-04-30 11:30] LABS: Alanine Aminotransferase 6 U/L (0-31); Albumin Level 4.4 g/dL (3.5-5.0); Alkaline Phosphatase 64 U/L (39-117); Anion Gap 12 (12-20); Aspartate Amino Transferase 10 U/L (5-31); Bilirubin Total 0.5 mg/dL (0.0-1.0); Blood Urea Nitrogen 10 mg/dL (9-16); C Reactive Protein < 0.10 mg/dL (< or = 0.50); Calcium 9.5 mg/dL (8.4-10.2); Carbon Dioxide 27 mmol/L (22-29); Chloride 104 mmol/L (96-108); Cholesterol 184 mg/dL (<200); Estimated Glomerular Filt Rate > 60; Glucose Fasting 86 mg/dL (60-99); HDL Cholesterol 42 mg/dL (>40); LDL Cholesterol Calculated 120 mg/dL (<100); Potassium 3.8 mmol/L (3.3-5.1); Sodium 139 mmol/L (135-145); Total Protein 7.4 g/dL (6.5-8.0); Triglycerides 110 mg/dL (<150)
[2024-04-30 11:46] LABS: Thyroid Stimulating Hormone 0.63 uIU/mL (0.32-4.0)
[2024-04-30 11:51] LABS: Vitamin B12 185 pg/mL (200-900)
== END 2024-04-30 10:02 | disposition home or self-care (01) ==
LOC: HO.10HDL 10:01
PROVIDERS: Visit Provider Internal Medicine
DX: R10.9 Unspecified abdominal pain (principal); R55 Syncope and collapse; Z84.89 Family history of other specified conditions
CPT/HCPCS: 36415; 80053; 80061; 82550; 82607; 84443; 85025; 86140

== ENCOUNTER → 2024-07-15 14:08 | Outpatient (RCR) | payer MEDICAID, SELFPAY ==
[2020-09-13 13:35] VITALS: BP 121/68; PULSE 84; RESP 18; TEMP 37.1; O2SAT 99
[2020-09-13 13:36] VITALS: BMI 23.1
[2020-09-13 14:23] LABS: MANUAL DIFF FLAG NO
[2020-09-13 14:32] LABS: Basophils Absolute Auto 0.1 X10*3/uL (0.0-0.2); Basophils Percent Auto 0.6 % (0-2); Eosinophils Absolute Auto 0.1 X10*3/uL (0.0-0.4); Eosinophils Percent Auto 1.1 % (0-4); Hematocrit 36.9 % (37-47); Hemoglobin 12.1 g/dl (12.0-16.0); Imm Gran Abs Auto 0.04 X10*3/uL (0.00-0.03); Imm Gran Pct Auto 0.5 % (0.0-0.4); Lymphocytes Absolute Auto 2.6 X10*3/uL (1.2-4.9); Lymphocytes Percent Auto 30.4 % (20-40); Mean Corpuscular HGB Conc 32.8 g/dl (31.0-35.0); Mean Corpuscular Hemoglobin 30.3 pg (27.0-33.0); Mean Corpuscular Volume 92.5 fL (80-98); Mean Platelet Volume 9.4 fL (9.4-12.3); Monocytes Absolute Auto 0.4 X10*3/uL (0.1-1.2); Monocytes Percent Auto 4.4 % (2-11); Neutrophils Absolute Auto 5.3 X10*3/uL (2.0-8.3); Platelet Count 305 X10*3/uL (160-400); Red Blood Count 3.99 X10*6/uL (4.20-5.50); Red Cell Distribution Width 14.4 % (11.0-16.0); White Blood Count 8.4 X10*3/uL (4.8-10.8)
--- NOTE | 2020-09-13 15:14 | MHC.HEMONC ---
pt seen by Dr Michaud. Labs reviewed. Anemia is better.
[2020-09-13 15:18] LABS: Alanine Aminotransferase < 6 U/L (0-31); Albumin Level 4.4 g/dL (3.5-5.0); Alkaline Phosphatase 59 U/L (39-117); Anion Gap 12 (12-20); Aspartate Amino Transferase 9 U/L (5-31); Bilirubin Total 0.4 mg/dL (0.0-1.0); Blood Urea Nitrogen 11 mg/dL (9-16); Calcium 9.1 mg/dL (8.4-10.2); Carbon Dioxide 25 mmol/L (22-29); Chloride 104 mmol/L (96-108); Creatinine Clr Calc Pharmacy 88.3; Estimated Glomerular Filt Rate > 60; Glucose Random 82 mg/dL (60-115); Sodium 137 mmol/L (135-145); Total Protein 7.2 g/dL (6.5-8.0)
[2020-09-13 15:22] LABS: Ferritin 6 ng/mL (10-122)
--- NOTE | 2020-09-13 15:25 | P.PNHO_ITS ---
Medical Summary - Medical Summary Chief complaint: Follow-up for: Iron deficiency anemia. Medical Summary: DIAGNOSIS: Microcytic Hypochromic Anemia. CURRENT THERAPY: Status post-IV Ferrlecit, between June 10 and June. Interval History Interval history: This is a pleasant 35 year-old lady, who is here for a follow-up visit. She feels quite well, although occasionally she feels a bit tired. She tells me that she used to have a heavy period. However she underwent endometrial ablation, more than a year ago. 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 She only spots for a day or so. No chest pain or trouble breathing. No abdominal pain nausea vomiting heartburn indigestion. Her bowels are moving without any gross blood in it. She enjoys a good appetite. Her weight is up. She is in good spirits. Rest of the review of systems is unremarkable. Review of Systems - Constitutional Reports fatigue - Eyes Denies blind spots - ENT Reports no additional ear, nose, mouth, and throat complaints - Cardiovascular Denies chest pain at rest - Respiratory Denies cough - Gastrointestinal Denies abdominal pain - Genitourinary Denies abnormal periods - Musculoskeletal Denies joint pain - Integumentary/Breasts Skin/Breast: Denies bleeding lesions - Neurologic Reports no additional neurologic complaints - Psychiatric Reports depression - Endocrine Denies excessive sweating - Hematologic/Lymphatic Denies easy bruising - Allergic/Immunologic Reports GI upset with certain foods PMFSH Medical History: Medical History (Last Reviewed 09/07/20 @ 13:18 by Amy Ruiz) Arthritis Asthma Patient : No Surgical History: Surgical History (Last Updated 09/13/20 @ 13:47 by Dalila Graham RN) H/O hemorrhoidectomy H/O tubal ligation Hx of appendectomy Home Medications and Allergies Home Medications Medication Instructions Recorded Confirmed Type Advil 200 mg PO DAILY PRN 09/07/20 09/13/20 History multivitamin 1 tab PO DAILY 09/07/20 09/13/20 History pantoprazole 40 mg PO DAILY 09/07/20 09/13/20 History Allergies Allergy/AdvReac Type Severity Reaction Status Date / Time No Known Allergies Allergy Verified 09/07/20 12:50 [No Known Allergies*] Exam Vital signs: Vital Signs Temp 98.7 F 09/13/20 13:35 Pulse 84 09/13/20 13:35 Resp 18 09/13/20 13:35 BP 121/68 09/13/20 13:35 Pulse Ox 99 09/13/20 13:35 Intake & Output 09/12/20 09/13/20 09/13/20 18:59 06:59 18:59 Other: Weight 63.2 kg Weight 63.2 kg Body Mass Index 23.1 - Constitutional Present: no acute distress - Routine HEENT Exam Head: Present: normal inspection ENT: Present: mucous membranes moist - Routine Neck Exam Present: full ROM - Routine Respiratory Exam Present: CTAB - Routine Cardiovascular Exam Cardiovascular: Present: RRR, S1, S2 - Routine Abdominal Exam Present: soft, nontender - Routine Rectal Exam Patient deferred: digital exam - Routine Extremities Exam Present: nontender - Routine Back/Spine/Pelvis Exam Back/Spine: Present: full ROM - Routine Skin Exam Present: intact - Routine Neurological Exam Present: alert, oriented X3 - Detailed Neurological Exam: Coma Scale Eye Opening: Spontaneous (4) Verbal Response: Oriented (5) Motor Response: Obeys commands (6) Glascow Coma Scale Total: 15 - Routine Psychiatric Exam Present: normal affect Data - Labs CBC & Chem 7: 09/13/20 14:00 09/13/20 14:00 Labs: Laboratory Results - last 24 hr 09/13/20 09/13/20 14:00 14:00 WBC 8.4 RBC 3.99 L Hgb 12.1 Hct 36.9 L MCV 92.5 MCH 30.3 MCHC 32.8 RDW 14.4 Plt Count 305 MPV 9.4 Immature Gran % (Auto) 0.5 H Neut % (Auto) 63.0 Lymph % (Auto) 30.4 Gila % (Auto) 4.4 Eos % (Auto) 1.1 Baso % (Auto) 0.6 Lymph # (Auto) 2.6 Gila # (Auto) 0.4 Eos # (Auto) 0.1 Baso # (Auto) 0.1 Abs Immat Gran (auto) 0.04 H Absolute Neuts (auto) 5.3 Absolute Nucleated RBC 0.000 Nucleated RBC % (auto) 0.0 Sodium 137 Potassium 4.0 Chloride 104 Carbon Dioxide 25 Anion Gap 12 BUN 11 Creatinine 0.80 Estim Creat Clear Calc 88.3 Estimated GFR > 60 Random Glucose 82 Calcium 9.1 Ferritin 6 L Total Bilirubin 0.4 AST 9 ALT < 6 Alkaline Phosphatase 59 Total Protein 7.2 Albumin 4.4 Progress Note: A/P (1) Iron deficiency anemia Status: Acute Assessment and plan: 35 year old lady with history of Microcytic Hypochromic Anemia, intermittently over the years, dating back to October of 2001. Her hemoglobin at that time was 10.9. Her iron indices were consistent with iron deficiency Anemia. She has been on oral iron replacement in the past. It is difficult for her to tolerate the pills. She was on iron liquid for a while but the hemoglobin remained low. I checked celiac disease profile. This was negative. I checked [id number] and folate levels: 8.8. Since she was intolerant to oral iron, l gave her IV iron. She received 5 doses of Ferrlecit, weekly for 4 weeks, between June 03 and July 09 of last year. Her hemoglobin normalized. However it gradually declined again. It was down to 8.8. She again received Ferrlecit between 07 24 to 09/08 2019. Subsequently, she had the endometrial ablation. Since then her period has been scanty. She is no longer fatigued. Her hemoglobin is actually normal today. PLAN: I will follow her along. Will check CBC and ferritin, in 3 months time. She will return here in 3 months for a followup. She will call in case she gets fatigued prior to that time. Thanks, CC: Dr. Nghia Morton. - Time Spent With Patient Total time spent is greater than 50% in coordination of care (as documented) at patient's floor/unit and/or counseling patient: 25 - 35 minutes
== END | disposition home or self-care (01) ==
LOC: HO.ONC 09-10 16:26
PROVIDERS: PCP Internal Medicine; Visit Provider Internal Medicine Medical Oncology
DX: D50.9 Iron deficiency anemia, unspecified (principal)
CPT/HCPCS: 36415; 80053; 82728; 85025; 99214

== ENCOUNTER 2025-05-19 11:40 | Outpatient (AMB) | payer OTHER, SELFPAY ==
--- NOTE | 2025-05-19 11:41 | A.OFFPC_ITS ---
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 She reports 3 days ago she was cleaning up the yd at her home when she bent down to oyster picker a Pallet and when lifting up developed immediate sharp pain across the low back that took her breath away. She felt like the back was being constricted. She had to sit down and was able to catch her breath but had difficulty standing and backup. Describes a tightness and a feeling as if her back was locked. She states the pain radiates into the buttock bilaterally and occasionally down the legs bilaterally with tingling. She reports the pain has been constant and worsens with prolonged sitting and standing as well as lying down. She does not have difficulty walking. No bowel/bladder dysfunction or saddle anesthesia. She feels the pain is worsening. Currently rated as a 7/10 but at its worst was a 10/10. 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 She does have history of back injury about 15 years ago where she believes she had a disc issue but has not bothered her since. sunday cleaning up yard- bent down to oyster picker pallet putting down pallet- took breath away with severe pain across low back. felt immediate constriction. felt like she stopped breathing. sat down some help caught her breath. tight and locked. able to get up. still hurting and constant since. worse. ROS: General: No fevers, malaise, unintentional weight loss HEENT: No blurred vision, diplopia. No sore throat, nasal congestion, rhinorrhea, sinus pain, ear pain Cardiovascular: No chest pain, palpitations, or leg edema Respiratory: No shortness of breath, wheezing, cough GI: No abdominal pain, nausea, vomiting, diarrhea, constipation, melena, hematochezia : No dysuria, hematuria, increased urinary frequency, decreased urinary output MSK: See HPI Neuro: See HPI Skin: No rashes or lesions EXAM: Constitutional - Awake and Alert, No apparent distress Eyes - PERRL Cardiovascular - S1S2, RRR, No edema Respiratory - Normal lung expansion, Normal respiratory effort, No respiratory distress, CTA bilaterally Extremities - no calf tenderness bilaterally, no swelling MSK - significant midline tenderness to palpation with bilateral paraspinal tenderness to palpation at the level of about L3-S1 and pain at the SI joints bilaterally. Limited extension and flexion. Significant guarding with position changes. Positive bilateral straight leg raises. Skin - Warm/Dry Neurological - Alert & oriented x3. 5/5 strength in the lower extremities bilaterally with 2+ patellar reflexes and downgoing Babinski Psychological - Appropriate affect PFSH Medical History Arthritis Asthma Surgical History H/O hemorrhoidectomy H/O tubal ligation Hx of appendectomy Social History (Updated 11/28/22 @ 13:26 by Raegan Burk MA) Alcohol intake: never Patient Tobacco Use Status: Current someday Tobacco user Female Reproductive History Menstrual Age of Menarche: 14 Questionnaire PHQ-9 Over the last 2 weeks, how often have you been bothered by any of the following problems? 1. Little interest or pleasure in doing things: more than half the days 2. Feeling down, depressed, or hopeless: not at all 3. Trouble falling or staying asleep, or sleeping too much: more than half the days 4. Feeling tired or having little energy: not at all 5. Poor appetite or overeating: not at all 6. Feeling bad about yourself - or that you are a failure or have let yourself or your family down: not at all 7. Trouble concentrating on things, such as reading the newspaper or watching television: not at all 8. Moving or speaking so slowly that other people could have noticed. Or the opposite - being so fidgety or restless that you have been moving around a lot more than usual: not at all 9. Thoughts that you would be better off or of hurting yourself in some way: not at all Total score: 4 Source: Developed by Drs. Ken Schuler, Karen Medeiros, Amor Bolanos and colleagues, with an educational farzad from [employer]. Thrive Questionnaire Date Thrive assessed: 05/19/25 I am a: Patient What is your living situation today?: I have a steady place to live Within the past 12 months, did the food you bought not last and you didn't have the money to get more?: Never true Within the past 12 months, did you worry whether your food would run out before you got money to buy more?: Never true Do you have trouble paying for medicines?: No Do you have trouble getting transportation to medical appointments?: No Do you have trouble paying your heating and electricity bill?: No Do you have trouble taking care of your child, family member or friend?: No Do you have trouble with day-to-day activities such as bathing, preparing meals, shopping, managing finances, etc.?: No Are you currently unemployed and looking for a job?: No Are you interested in more education?: Yes THRIVE Score: 0 BEVERLY-7 AMB Questionnaire BEVERLY-7 Date BEVERLY - 7 assessed: 05/19/25 Feeling nervous, anxious, or on edge: 0 = Not at all Not being able to stop or control worryin = Not at all Worrying too much about different things: 0 = Not at all Trouble relaxin = Not at all Being so restless that it is hard to sit still: 0 = Not at all Becoming easily annoyed or irritable: 0 = Not at all Feeling afraid as if something awful might happen: 0 = Not at all Total BEVERLY-7 score (0-4 normal; 5-9 mild; 10-14 moderate; 15-21 severe): 0 Source: Developed by Drs. Ken Schuler, Karen Medeiros, Amor Bolanos and colleagues, with an educational farzad from [employer]. Physical exam (Primary Care) Vital Signs: Last Vital Signs Temp 97.7 F 05/19/25 11:42 Pulse 64 05/19/25 11:42 BP 112/66 05/19/25 11:42 Pulse Ox 99 05/19/25 11:42 Oxygen Delivery Method Room Air 05/19/25 11:42 BMI result Body Mass Index 25.0 Tobacco/Smoking Status: Tobacco use Status Patient Tobacco Use Status Current someday Tobacco 05/19/25 11:45 PHQ-9: PHQ-9 Score PHQ-9: Total score 4 05/19/25 14:06 Thrive Assessment: Date of Thrive Assessment Date Thrive assessed 05/19/25 05/19/25 12:01 Coding Level of Care Code New Pt Level 4 (28158) Diagnoses Acute low back pain with bilateral sciatica M54.42; M54.41 Assessment & Plan Assessment & Plan (1) Acute low back pain with bilateral sciatica: Code(s): M54.42 - Lumbago with sciatica, left side; M54.41 - Lumbago with sciatica, right side Category: Medical Plan: Recommend ketorolac 10 mg every 6 hours as needed for pain, advised to not take longer for 4-5 days. She is also given prescription for Robaxin to use every 8 hours as needed. Counseled on sedating side effects. She is given referral to Physical therapy as well as gentle exercises to appropriate home. Recommend heat or ice whichever she prefers as well as topical analgesics. Should symptoms persist despite physical therapy, will consider advanced imaging. Plan Follow-up in the office for annual physical exam, sooner if symptoms persist. Plan as above. Referred for screening mammogram Orders: Orders PT Evaluation and Treatment Today M54.41 - Lumbago with sciatica, right side, M54.42 - Lumbago with sciatica, left side MM tomosynthesis screening BI Today Z12.31 - Encounter for screening mammogram for malignant neoplasm of breast Medications: New methocarbamol 750 mg PO Q8H 30 tabs 0RF ketorolac maximum total duration of 5 days from all oral, intranasal, or parenteral formulations 10 mg PO QID PRN 20 tabs 0RF pain
[2025-05-19 11:42] VITALS: BP 112/66; PULSE 64; TEMP 36.5; O2SAT 99; BMI 25.0
--- OUTSIDE RECORDS SUMMARY | 2025-05-19 12:53 | XMS_ITS | Patient Health Record ---
Author Organization [facility] Address [address] [place] [id number] Care Team Providers Care Stationary Engineer Refrigeration Name Role Phone Dheeraj Morton MD Primary Care Provider Oumar Castro Jr Unavailable Reason For Referral No Information Medications Medication SIG (Take, Route, Frequency, Duration) Notes Start Date End Date Status Pantoprazole Sodium 40 MG 1 tablet Orall y Once a day for 30 day(s) 09/06/2020 Active MiraLax (colon prep) 8.3 ounce (238) grams mixed with Gatorade or Crystal Light orally begin at 5:00 p.m. the day before the procedure for 1 day 09/06/2020 Active Advil PRN Active Multivitamin Active Social History Tobacco Use: Social History Observation Description Date Details (start date - stop date) Current Smoker NA - NA Tobacco Use/Smoking Question Answer Notes Patient is a current smoker When did you start smoking? 16 years old How often do you smoke cigarettes? every day How many cigarettes a day do you smoke? 5 or les s How soon after you wake up d o you smoke your first cigarette? after 60 minutes Are you interested in quitting? Ready to quit Additional Findings: Tobacco User Light cigarett e smoker ((1-9 cigs/day) Alcohol Screen Question Answer Notes Did you have a drink containing alcohol in the p ast year? No Points 0 Interpretation Negative Problems Problem Type SNOMED Code ICD Code Onset Dates Problem Status W/U Status Risk Notes Problem 254822811 Change in bowel habits (R19.4) Active confirmed Problem 168501614 GERD without esophagitis (K21.9) Active confirmed Plan Of Treatment Future Test Test Name Order Date UPPER GI ENDOSCOPY 09/06/2020 COLONOSCOPY 09/06/2020 Insurance Providers Payer Name Payer Address Payer Phone Subscriber Number Group Number Insured Name Patient Relationship to Insured Coverage Start Date Coverage End Date [place] [address] [place] [phone] [id number] MATTIE PAEZ Self - patient is the insured Medical (General) History Medical History History ICD Code Arthritis asthma Surgical History Surgery Date(Month/Year) appendectomy tubal ligation
== END 2025-05-19 12:04 | disposition home or self-care (01) ==
LOC: HO.HMCHD 11:40
PROVIDERS: PCP Physician Assistant; Visit Provider Physician Assistant
DX: M54.42 Lumbago with sciatica, left side (principal); M54.41 Lumbago with sciatica, right side

== ENCOUNTER → 2025-05-19 11:40 | Outpatient (BNVA) | payer OTHER, SELFPAY | PROVIDERS: PCP Physician Assistant; Visit Provider Physician Assistant | DX: M54.42 Lumbago with sciatica, left side (principal); M54.41 Lumbago with sciatica, right side | CPT/HCPCS: 99202 ==

== ENCOUNTER 2025-05-27 08:59 | Outpatient (REF) | payer OTHER, SELFPAY ==
--- OUTSIDE RECORDS SUMMARY | 2025-05-27 09:13 | XMS_ITS | Patient Health Record ---
Author Organization [facility] Address [address] [place] [id number] Care Team Providers Care Systems Software Specialist Name Role Phone Dheeraj Morton MD Primary [...] Problem Status W/U Status Risk Notes Problem [id number] Change in bowel habits (R19.4) Active confirmed Problem [id number] GERD without esophagitis (K21.9) Active confirmed Plan Of Treatment Future Test Test Name Order Date UPPER GI ENDOSCOPY 09/06/2020 COLONOSCOPY 09/06/2020 Insurance Providers Payer Name Payer Address Payer Phone Subscriber Number Group Number Insured Name Patient Relationship to Insured Coverage Start Date Coverage End Date [place] [address] [place] [phone] [id number] MATTIE PAEZ Self - patient is the insured Medical (General) History Medical History History ICD Code Arthritis asthma Surgical History Surgery Date(Month/Year) appendectomy tubal ligation
== END 2025-05-27 09:00 | disposition home or self-care (01) ==
LOC: HO.MAMMO 08:59
PROVIDERS: PCP Physician Assistant; Visit Provider Physician Assistant
DX: Z12.31 Encounter for screening mammogram for malignant neoplasm of breast (principal)
CPT/HCPCS: 77063; 77067

== ENCOUNTER → 2025-05-27 09:00 | Outpatient (BNV) | payer OTHER, SELFPAY | PROVIDERS: PCP Physician Assistant; Visit Provider Internal Medicine | DX: Z12.31 Encounter for screening mammogram for malignant neoplasm of breast (principal) | CPT/HCPCS: 77063; 77067 ==